=== PATIENT | male | born 1990 | race African-American/Black ===

== ENCOUNTER 2016-10-13 12:56 | Emergency (ER) | payer SELFPAY ==
[~2016-10-13] VITALS: Ht 182.9 cm; Wt 72.5 kg
[~2016-10-13 12:56] MED LIST: CYCL-36 PO; DICL50 PO
[2016-10-13 12:58] VITALS: BP 135/65; PULSE 64; RESP 20; TEMP 98.2; O2SAT 100
[2016-10-13] MEDS ORDERED: DOXYCYCLINE HYCLATE 100 MG TAB PO ONE (13:45)
[2016-10-13] MEDS ORDERED: cefTRIAXone 250 MG VIAL IM ONE (13:45)
[2016-10-13] MEDS ORDERED: PENICILLIN G BENZATHINE 2,400,000 UNITS/4 ML SYRINGE IM ONE (13:45)
[2016-10-13] MEDS ORDERED: LIDOCAINE HCL 1% 50 ML VIAL XX ONE (13:45)
--- NOTE | 2016-10-13 14:01 | PD ---
HPI Chief Complaint: Laceration/Skin Injury Time Seen by Provider: 13:40 Travel History International Travel<30 days: No Contact w/Intl Traveler<30days: No Traveled to known affect area: No History of Present Illness HPI Patient is a 26-year-old male presenting to emergency for evaluation of swelling to his left groin. Patient states it's been there for approximately one week and is painful. He denies any dysuria or penile discharge. He does report that he had unprotected sex 2 weeks ago. He reports frequent unprotected heterosexual sex. He denies any fever, chills, nausea, vomiting, abdominal pain. He states he gets frequent sores on the tip of his penis. He reports having HIV testing at the beginning of the year. He denies any significant past medical history. [facility] Past Medical History Medical History: Denies Significant Hx Tetanus Vaccination: > 5 Years Social History Alcohol Use: Yes Tobacco Use: Yes (2 CIG A DAY FOR 1 YEARS) Substance Use: No Allergies-Medications (Allergen,Severity, Reaction): Coded Allergies: No Known Allergies (Verified , 10/13/16) Reported Meds & Prescriptions Reported Meds & Active Scripts Active Doxycycline Hyclate 100 Mg Cap 100 Mg PO BID 21 Days Review of Systems Except as stated in HPI: all other systems reviewed are Neg Genitourinary: Positive: Pelvic Pain Skin: Positive Lumps, Positive Lesions Physical Exam Narrative GENERAL: Developed, well-nourished, alert male. Resting comfortably in no acute distress. SKIN: Warm and dry. HEAD: Normocephalic. EYES: No scleral icterus. No injection or drainage. NECK: Supple, trachea midline. No JVD or lymphadenopathy. CARDIOVASCULAR: Regular rate and rhythm without murmurs, gallops, or rubs. RESPIRATORY: Breath sounds equal bilaterally. No accessory muscle use. GASTROINTESTINAL: Abdomen soft, non-tender, nondistended. Left groin lymphadenopathy, tender to palpation GENITOURINARY: Uncircumcised. Testes descended bilaterally without evidence of rotation. Excoriated, ulcerative lesion to the tip of the penis. Foul smelling odor under foreskin No urethral discharge. BACK: Nontender without obvious deformity. No CVA tenderness. Data Data Last Documented VS Vital Signs Date Time Temp Pulse Resp B/P Pulse Ox O2 Delivery O2 Flow Rate FiO2 10/13/16 12:58 98.2 64 20 135/65 100 Room Air Orders Ua Includes Microscopic (10/13/16 13:44) Gc And Chlamydia Pcr (10/13/16 13:44) Ceftriaxone Inj (Rocephin Inj) (10/13/16 13:45) Doxycycline (Vibratab) (10/13/16 13:45) Lidocaine 1% Inj (50 Ml) (Xylocaine 1% I (10/13/16 13:45) Rapid Plasmin Reagin Screen (10/13/16 13:44) Hiv Antibody Screen (10/13/16 13:44) Hsv 1,2 Abs Igm (10/13/16 13:44) Hepatitis Profile (10/13/16 13:44) Penicillin G Benzathine Inj (Bicillin L- (10/13/16 13:45) Labs Laboratory Tests Test 10/13/16 14:29 Urine Color YELLOW Urine Turbidity CLEAR Urine pH 5.5 Urine Specific [place] 1.029 Urine Protein TRACE mg/dL Urine Glucose (UA) NEG mg/dL Urine Ketones NEG mg/dL Urine Occult Blood NEG Urine Nitrite NEG Urine Bilirubin NEG Urine Urobilinogen 2.0 MG/DL Urine Leukocyte Esterase NEG Urine RBC 1 /hpf Urine WBC 2 /hpf Urine Mucus FEW /lpf MDM Medical Decision Making Medical Screen Exam Complete: Yes Emergency Medical Condition: Yes Interpretation(s) Vital Signs Date Time Temp Pulse Resp B/P Pulse Ox O2 Delivery O2 Flow Rate FiO2 10/13/16 12:58 98.2 64 20 135/65 100 Room Air Differential Diagnosis Abscess versus lymphogranuloma versus cancroid versus other Narrative Course Patient is a 26-year-old male that presented to emergency evaluation of swelling in his left groin. Physical assessment also revealed an excoriated ulcerated. Leading to the tip of his penis. Patient states it comes and goes. 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 In the emergency department we obtained labs for HIV, HSV, hepatitis ABC, RPR, UA. GC, chlamydia. Patient was treated with Rocephin, azithromycin, doxycycline. He was given prescription to complete full course of doxycycline at home. He was advised that he will be notified regarding the test results with the next 24-48 hours. Patient was advised to follow-up with the emergency department if he did not obtain test results. He was advised to avoid sexual contact with partners until he obtains test results, if positive he was advised that he would need to notify his partner so they can be tested and/or treated. He verbalized understanding of discharge instructions. He was given strict return precautions. Patient stable for discharge. Diagnosis Primary Impression: Lymphadenopathy, inguinal Additional Impressions: Possible exposure to STD Penile lesion Referrals: [facility] Dept. Patient Instructions: General Instructions, Sexually Transmitted Diseases (ED) Additional Instructions: You will be notified regarding test results Avoid sexual activity until he received her test results, if positive, your sexual partner should be notified and tested/treated Complete full course of antibiotics as prescribed Follow up with [facility] Maintain safe sexual practices to avoid STD transmission Return to emergency department for any new or worsening symptoms Med/Other Pt SpecificInfo: Prescription(s) given Scripts Doxycycline Hyclate 100 Mg [id number] Mg PO BID 21 Days Ref 0 Prov:Delia Sarabia 10/13/16 Disposition: 01 DISCHARGE HOME Condition: Stable Delia Sarabia Oct 13, 2016 14:00
[2016-10-13 15:11] LABS: BLOOD, URINE NEG (NEG); GLUCOSE,URINE NEG (NEG); KETONE, URINE NEG (NEG); MUCUS URINE FEW /lpf (OCC); NITRITE,URINE NEG (NEG); PH, URINE 5.5 (5.0-8.5); URINE COLOR YELLOW (YELLW/STRAW)
[2016-10-13] MEDS ORDERED: DOXY100C PO (15:12)
[2016-10-13 17:47] LABS: CHLAMYDIA PCR NOT DETECTED (NOT DETECT); NEISSERIA PCR NOT DETECTED (NOT DETECT)
[2016-10-14 09:56] LABS: RAPID PLASMA REAGIN SCREEN REACTIVE (NON-REACTVE)
[2016-10-16 23:53] LABS: HSV2 IGM IFA NEGATIVE (())
[2016-10-17 09:26] LABS: HSV IGM 1 TITER ND TITER; HSV IGM II TITER ND TITER
== END 2016-10-13 15:23 | disposition home or self-care (01) ==
LOC: NEPD 12:56
DX: R59.0 Localized enlarged lymph nodes (principal); N48.5 Ulcer of penis; F17.210 Nicotine dependence, cigarettes, uncomplicated; Z20.2 Contact with and (suspected) exposure to infections with a predominantly sexual mode of transmission
CPT/HCPCS: 80074; 81001; 86592; 86695; 86696; 86703; 87491; 87591; 96372; 99284; J0561; J0696

== ENCOUNTER 2016-12-25 05:44 | Emergency (ER) | payer SELFPAY ==
[~2016-12-25] VITALS: Ht 182.9 cm; Wt 70.0 kg
[~2016-12-25 05:44] MED LIST changes: -CYCL-36 PO; -DICL50 PO; +DOXY100C PO
[2016-12-25 05:58] VITALS: BP 145/96; PULSE 69; RESP 20; TEMP 98.2; O2SAT 100
[2016-12-25 06:15] VITALS: BP 162/93; PULSE 55; RESP 16; O2SAT 100
[2016-12-25 07:33] VITALS: BP 154/94; PULSE 58; RESP 16; O2SAT 100
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
== END 2016-12-25 08:18 | disposition home or self-care (01) ==
LOC: NEPE 05:44
DX: Z77.028 Contact with and (suspected) exposure to other hazardous aromatic compounds (principal); F17.210 Nicotine dependence, cigarettes, uncomplicated
CPT/HCPCS: 82375; 99285